=== PATIENT | male | born 1945 | race Caucasian/White ===

== ENCOUNTER 2016-06-30 19:53 | Inpatient (IN) | payer OTHER, MEDICARE ==
[~2016-06-30] VITALS: Ht 165.1 cm; Wt 53.8 kg
[2016-06-30] MEDS ORDERED: OLAN10TA3 PO (20:35)
[2016-06-30] MEDS ORDERED: TAMS-3 PO (20:35)
[2016-06-30] MEDS ORDERED: AMLO10TA2 PO (20:35)
[2016-06-30] MEDS ORDERED: ZOLP5TAB2 PO (20:35)
[2016-06-30] MEDS ORDERED: MAGN400O4 PO (20:35)
[2016-06-30] MEDS ORDERED: ACET-2154 PO (20:35)
[2016-06-30] MEDS ORDERED: PARO10TA26 PO (20:35)
[2016-06-30 22:15] LABS: *BILIRUBIN,URIN NEGATIVE (NEGATIVE); *BLOOD, URINE NEGATIVE (NEGATIVE); *CLARITY,URINE SLIGHTLY CLOUDY (CLEAR); *COLOR,URINE YELLOW (YELLOW); *KETONES,URINE 1+ (NEGATIVE); *PROTEIN,URINE TRACE (NEGATIVE); *UROBILINOGEN,URINE 0.2 E.U./dl (NORMAL); LEUKOCYTE ESTERASE ,URINE 2+ (NEGATIVE); PH,URINE 5.5 (5.0-8.0); UGLUCOSE NEGATIVE (NEGATIVE)
[2016-06-30 22:20] LABS: NITRITE, URINE POSITIVE (NEGATIVE)
[2016-06-30 22:22] LABS: BACTERIA,URINE MANY /HPF (NONE SEEN); RBC,URINE 0-3 /HPF (0-3); SQUAMOUS EPITHELIAL CELL,UR FEW /HPF (NONE SEEN); WBC,URINE 80-100 /HPF (0-3)
[2016-06-30 22:25] LABS: BASOPHILS % (AUTO) 0.5 % (0.0-2.0); EOSINOPHILS # (AUTO) 0.1 K/uL (0.0-0.7); EOSINOPHILS % (AUTO) 2.2 % (0.0-7.0); HEMATOCRIT 37.5 % (40-50); HEMOGLOBIN 12.3 G/DL (14.0-18.0); LYMPHOCYTES # (AUTO) 1.8 K/UL (0.8-4.8); LYMPHOCYTES % (AUTO) 32.2 % (20.5-51.5); MEAN CORPUSCULAR HGB CONC 33 g/dL (32.0-37.0); MEAN CORPUSCULAR VOLUME 94.6 FL (82.0-92.0); MONOCYTES # (AUTO) 0.4 K/UL (0.1-1.30); MONOCYTES % (AUTO) 7.1 % (0.0-11.0); NEUTROPHILS # (AUTO) 3.4 K/UL (1.8-8.9); PLATELET COUNT (AUTO) 163 K/UL (150-450); RED BLOOD CELL COUNT(AUTO) 3.97 MIL/UL (4.7-6.1); RED CELL DISTRIBUTION WIDTH 12.8 % (11.5-14.5); WHITE BLOOD COUNT (AUTO) 5.7 K/UL (4.0-11.2)
[2016-06-30] MEDS ORDERED: GENTAMICIN SULFATE INJ 80 MG in IV DEXTROSE 5% 100 ML IV ONE (22:30)
[2016-06-30] MEDS ORDERED: CEFTRIAXONE 1 G in IV DEXTROSE 5% 50 ML IV ONE (22:30)
[2016-06-30] MEDS ORDERED: IV NORMAL SALINE 1000 ML BAG IV ONE (22:30)
[2016-06-30 22:31] LABS: *AMPHETAMINE, URINE NEGATIVE (NEGATIVE); *BARBITURATE, URINE NEGATIVE (NEGATIVE); *CANNABINOID, URINE NEGATIVE (NEGATIVE); *COCCAINE, URINE NEGATIVE (NEGATIVE); *OPIATE, URINE NEGATIVE (NEGATIVE); *PHENCYCLIDINE SCREEN,URINE NEGATIVE (NEGATIVE)
[2016-06-30 22:37] LABS: CALCIUM 9.2 mg/dL (8.5-10.1); CARBON DIOXIDE 29 mmol/L (21-32); CHLORIDE 111 mmol/L (98-107); GFR 50 mL/min (>60); GLUCOSE 100 mg/dL (74-106); POTASSIUM 4.4 mmol/L (3.5-5.1); SODIUM SERUM 144 mmol/L (136-145); UREA NITROGEN, BLOOD 35 mg/dL (7-18)
[2016-06-30 22:39] LABS: CREATININE 1.4 mg/dL (0.6-1.3)
[2016-06-30 22:40] LABS: ETHANOL < 3 MG/DL (0-0)
[2016-06-30 22:42] LABS: ALANINE AMINOTRANSFERASE 41 U/L (16-63); ALBUMIN 3.4 g/dL (3.4-5.0); ALKALINE PHOSPHATASE 79 U/L (50-136); ASPARTATE AMINOTRANSFERASE 30 U/L (15-37); BILIRUBIN,TOTAL 0.3 mg/dL (0.2-1.0); TOTAL PROTEIN, SERUM 6.7 g/dL (6.4-8.2)
[2016-06-30 22:44] LABS: ACETAMINOPHEN < 2.0 ug/mL (10-30)
[2016-06-30 22:45] LABS: BILIRUBIN,DIRECT < 0.1 mg/dL (0.0-0.2)
[2016-06-30 22:46] LABS: AMMONIA 28 umol/L (11-32)
[2016-06-30] MEDS ORDERED: GENTAMICIN SULFATE 80 MG/2 ML VIAL ONE (23:04)
[2016-06-30] MEDS ORDERED: CEFTRIAXONE 1 G VIAL ONE (23:35)
[2016-06-30 23:55] LABS: THYROID STIMULATING HORMONE 0.685 mIU/mL (0.358-3.740)
[2016-07-01 01:17] VITALS: BP 102/62
[2016-07-01] MEDS ORDERED: ONDANSETRON 4 MG/2 ML VIAL IV PRN (01:45)
[2016-07-01 01:46] VITALS: BP 127/69
[2016-07-01] MEDS ORDERED: ZOLPIDEM 5 MG TABLET ONE (02:14)
[2016-07-01 04:00] VITALS: BP 94/53
[2016-07-01 06:55] LABS: BASOPHILS % (AUTO) 0.8 % (0.0-2.0); EOSINOPHILS # (AUTO) 0.2 K/uL (0.0-0.7); EOSINOPHILS % (AUTO) 2.8 % (0.0-7.0); HEMOGLOBIN 12.6 G/DL (14.0-18.0); LYMPHOCYTES # (AUTO) 2.4 K/UL (0.8-4.8); LYMPHOCYTES % (AUTO) 40.3 % (20.5-51.5); MEAN CORPUSCULAR HEMOGLOBIN 31.7 UUG (27.0-31.0); MEAN CORPUSCULAR HGB CONC 33 g/dL (32.0-37.0); MEAN CORPUSCULAR VOLUME 95.4 FL (82.0-92.0); MONOCYTES # (AUTO) 0.5 K/UL (0.1-1.30); MONOCYTES % (AUTO) 8.3 % (0.0-11.0); NEUTROPHILS # (AUTO) 2.9 K/UL (1.8-8.9); NEUTROPHILS % (AUTO) 47.8 % (38.5-71.5); PLATELET COUNT (AUTO) 157 K/UL (150-450); RED BLOOD CELL COUNT(AUTO) 3.98 MIL/UL (4.7-6.1); RED CELL DISTRIBUTION WIDTH 12.3 % (11.5-14.5)
[2016-07-01 07:26] LABS: THYROID STIMULATING HORMONE 1.169 mIU/mL (0.358-3.740)
[2016-07-01 07:37] LABS: BILIRUBIN,TOTAL 0.3 mg/dL (0.2-1.0); CALCIUM 8.6 mg/dL (8.5-10.1); CREATININE 1.2 mg/dL (0.6-1.3); MAGNESIUM 1.8 mg/dL (1.8-2.4); PHOSPHOROUS 3.2 mg/dL (2.5-4.9); POTASSIUM 4.4 mmol/L (3.5-5.1); TOTAL PROTEIN, SERUM 5.9 g/dL (6.4-8.2)
[2016-07-01] MEDS ORDERED: ACETAMINOPHEN 325 MG TABLET PO SCH (09:00)
[2016-07-01] MEDS: AMLODIPINE 10 MG TABLET PO SCH (09:00)
[2016-07-01] MEDS ORDERED: MAGNESIUM HYDROXIDE 30 ML LIQUID UDC PO PRN (09:00)
[2016-07-01] MEDS: PAROXETINE HCL 10 MG TABLET PO SCH (09:30)
[2016-07-01] MEDS: TAMSULOSIN HCL 0.4 MG CAP.SR.24H PO SCH ×2 (09:30→17:35)
[2016-07-01] MEDS: ACETAMINOPHEN 325 MG TABLET PO PRN ×2 (09:46→17:36)
[2016-07-01 12:00] VITALS: BP 97/57
[2016-07-01 16:13] VITALS: BP 106/56
[2016-07-01 19:00] VITALS: BP 101/59
[2016-07-01] MEDS: ZOLPIDEM 5 MG TABLET PO SCH (20:32)
[2016-07-02 04:00] VITALS: BP 104/62
[2016-07-02] MEDS: TAMSULOSIN HCL 0.4 MG CAP.SR.24H PO SCH ×2 (08:15→16:39)
[2016-07-02] MEDS: PAROXETINE HCL 10 MG TABLET PO SCH (08:15)
[2016-07-02] MEDS: AMLODIPINE 10 MG TABLET PO SCH (08:25)
[2016-07-02] MEDS ORDERED: IBUPROFEN 400 MG TABLET PO PRN (09:15)
[2016-07-02 11:03] VITALS: BP 107/63
[2016-07-02 15:06] VITALS: BP 100/56
[2016-07-02] MEDS ORDERED: CEFTRIAXONE 1 G VIAL IM SCH (17:45)
[2016-07-02] MEDS ORDERED: CEFTRIAXONE 1 G in IV DEXTROSE 5% 50 ML IV SCH (18:30)
[2016-07-02 20:00] VITALS: BP 108/66
[2016-07-02] MEDS: ZOLPIDEM 5 MG TABLET PO SCH (20:36)
[2016-07-02] MEDS ORDERED: OLANZAPINE 5 MG TABLET PO SCH (21:00)
[2016-07-03 04:24] VITALS: BP 105/58
[2016-07-03] MEDS ORDERED: Acetaminophen PO (07:19)
[2016-07-03] MEDS ORDERED: CEFT1VIA15 IV (07:19)
[2016-07-03] MEDS ORDERED: Paroxetine Hcl PO (07:19)
[2016-07-03] MEDS ORDERED: LACT10SO6 PO (07:19)
[2016-07-03] MEDS: TAMSULOSIN HCL 0.4 MG CAP.SR.24H PO SCH (08:26)
[2016-07-03] MEDS: AMLODIPINE 10 MG TABLET PO SCH (08:27)
[2016-07-03] MEDS ORDERED: PAROXETINE HCL 10 MG TABLET PO SCH (09:00)
[2016-07-03 11:03] VITALS: BP 136/74
== END 2016-07-03 13:58 | DRG 463 ==
LOC: ER 19:53 → TELE 07-01 00:42 → MED 07-01 00:57
PROVIDERS: ADMIT Internal Medicine; ATTEND Internal Medicine
DX: N39.0 Urinary tract infection, site not specified (principal); N17.0 Acute kidney failure with tubular necrosis; G93.49 Other encephalopathy; G20 Parkinson's disease; E44.1 Mild protein-calorie malnutrition; F31.9 Bipolar disorder, unspecified; I10 Essential (primary) hypertension; F20.9 Schizophrenia, unspecified; F17.210 Nicotine dependence, cigarettes, uncomplicated; N40.0 Benign prostatic hyperplasia without lower urinary tract symptoms; G24.01 Drug induced subacute dyskinesia; T43.505A Adverse effect of unspecified antipsychotics and neuroleptics, initial encounter; Y92.199 Unspecified place in other specified residential institution as the place of occurrence of the external cause; Z68.1 Body mass index [BMI] 19.9 or less, adult; D64.9 Anemia, unspecified; Z79.899 Other long term (current) drug therapy; M06.9 Rheumatoid arthritis, unspecified
CPT/HCPCS: 36415; 70030-TC; 70450; 71010; 80307; 82746; 83735; 84100; 84443; 85025; 85730; 93005; 93880; A4663; G0480-TC; G6040-TC; J0696; J1580; J7030; J7050; J7060

== ENCOUNTER 2017-01-30 20:14 | Inpatient (IN) | payer OTHER, MEDICARE ==
[~2017-01-30] VITALS: Ht 167.6 cm; Wt 58.1 kg
[~2017-01-30 20:14] MED LIST: ACET-2154 PO; AMLO10TA2 PO; Acetaminophen PO; CEFT1VIA15 IV; LACT10SO6 PO; MAGN400O6 PO; OLAN10TA3 PO; Paroxetine Hcl PO; TAMS-3 PO; ZOLP5TAB2 PO
--- NOTE | 2017-01-30 20:35 | NUR ---
Pt is received alert, responsive as he was sent by his facility to R/O UTI due to c/o bladder pain. His care continue as awaits MD orders.
[2017-01-30] MEDS ORDERED: PARO10TA86 PO (20:49)
[2017-01-30] MEDS ORDERED: LIDOCAINE 2% (UROJET) 10 ML JELLY MM ONE (21:00)
[2017-01-30 21:20] LABS: *BILIRUBIN,URIN NEGATIVE (NEGATIVE); *BLOOD, URINE NEGATIVE (NEGATIVE); *CLARITY,URINE CLEAR (CLEAR); *COLOR,URINE YELLOW (YELLOW); *KETONES,URINE NEGATIVE (NEGATIVE); *PROTEIN,URINE NEGATIVE (NEGATIVE); *UROBILINOGEN,URINE 0.2 E.U./dl (NORMAL); LEUKOCYTE ESTERASE ,URINE NEGATIVE (NEGATIVE); NITRITE, URINE NEGATIVE (NEGATIVE); UGLUCOSE NEGATIVE (NEGATIVE)
[2017-01-30 21:27] LABS: RBC,URINE 0-3 /HPF (0-3)
[2017-01-30 21:28] LABS: MUCUS,URINE FEW /LPF (0-FEW); WBC,URINE NONE SEEN /HPF (0-3)
[2017-01-30 21:45] LABS: BASOPHILS % (AUTO) 0.7 % (0.0-2.0); EOSINOPHILS # (AUTO) 0.3 K/uL (0.0-0.7); EOSINOPHILS % (AUTO) 3.7 % (0.0-7.0); HEMATOCRIT 41.6 % (36.7-47.1); HEMOGLOBIN 14.2 g/dL (12.5-16.3); LYMPHOCYTES # (AUTO) 2.3 K/uL (20.0-40.0); LYMPHOCYTES % (AUTO) 31.5 % (20.5-51.5); MEAN CORPUSCULAR HEMOGLOBIN 32.5 uug (23.8-33.4); MEAN CORPUSCULAR HGB CONC 34 g/dL (32.5-36.3); MEAN CORPUSCULAR VOLUME 94.9 fL (73.0-96.2); MONOCYTES # (AUTO) 0.6 K/uL (2.0-10.0); MONOCYTES % (AUTO) 8.9 % (0.0-11.0); NEUTROPHILS % (AUTO) 55.2 % (38.5-71.5); PLATELET COUNT (AUTO) 250 K/uL (152-348); RED BLOOD CELL COUNT(AUTO) 4.38 MIL/uL (4.06-5.63); WHITE BLOOD COUNT (AUTO) 7.2 K/uL (3.6-10.2)
[2017-01-30] MEDS ORDERED: HYDROCODONE/APAP 10-325 MG TABLET PO ONE (21:45)
[2017-01-30] MEDS ORDERED: ONDANSETRON IV *ER 4 MG/2 ML VIAL IV ONE (21:45)
[2017-01-30 21:54] LABS: CREATININE 1.3 mg/dL (0.6-1.3); POTASSIUM 4.4 mmol/L (3.5-5.1)
[2017-01-30] MEDS ORDERED: ONDANSETRON 4 MG/2 ML VIAL ONE (21:56)
[2017-01-30] MEDS ORDERED: HYDROCODONE/APAP 10-325 MG TABLET ONE (21:56)
[2017-01-30 22:06] LABS: BILIRUBIN,DIRECT 0.1 mg/dL (0.0-0.2); BILIRUBIN,TOTAL 0.2 mg/dL (0.2-1.0); TOTAL PROTEIN, SERUM 6.7 g/dL (6.4-8.2)
--- NOTE | 2017-01-30 22:07 | NUR ---
Pt remain alert, responsive as he is been Medicated as ordered as his care continue while awaits TEST results.
--- NOTE | 2017-01-30 22:23 | NUR ---
Call placed to [facility], Dr. Day will be paged.
--- NOTE | 2017-01-30 22:30 | NUR ---
Pt is noted alert, responsiveas new orders for pt to be admitted Med/surg , under the care off DR. Ayala with DX: off Intractable. Pt care continue.
--- NOTE | 2017-01-30 23:02 | NUR ---
Pt remain alert, responsive with call light in reach and fall precautions in place as report is given to the 2nd floor receiving nurse as pt is been admitted to room 203 MED/SURG. His care continue while monitor.
--- NOTE | 2017-01-30 23:20 | NUR ---
Pt is noted off the unit as he is been transported to 2nd floor room 203. His care continue.
[2017-01-30] MEDS ORDERED: MORPHINE SULFATE 2 MG/1 ML DISP.SYRIN IV PRN (23:30)
[2017-01-30] MEDS ORDERED: IV 1/2NS 1000 ML 1,000 ML IV PRN (23:30)
[2017-01-30] MEDS ORDERED: MAGNESIUM HYDROXIDE 30 ML LIQUID UDC PO PRN (23:30)
[2017-01-30] MEDS ORDERED: Medication Not On Formulary EA (Olanzapine (Zyprexa) 10 MG) PO SCH (23:30)
[2017-01-30] MEDS ORDERED: ONDANSETRON 4 MG/2 ML VIAL IV PRN (23:30)
--- NOTE | 2017-01-30 23:30 | NUR ---
PT RECEIVED FROM ED, VIA [facility]. ORIENTED TO ROOM. PT IS A/OX2. ABLE TO MAKE NEEDS KNOWN. V/S STABLE. IN NO ACUTE DISTRESS. NO C/O PAIN AT THIS TIME. PT DOES C/O OF HEADACHE. WILL ADMIN TYLENOL ORDERED. IV INTACT AND PATENT. ON RA, TOLERATING WELL. AFEBRILE. PT REQUEST SLEEPING MEDICATION, MD AWARE. SAFETY MEASURES IMPLEMENTED. CALL LIGHT WITHIN REACH.
--- NOTE | 2017-01-30 23:30 | NUR ---
PT REFUSES HEAD TO TOE ASSESSMENT AND CHANGE OF CLOTHES. UNABLE TO TAKE ADMITTING PHOTOS.
[2017-01-30 23:38] VITALS: BP 131/64
--- NOTE | 2017-01-31 | NUR ---
PT REFUSED IVF. IVF HELD. PT IN STABLE CONDITION. TOLERATING ORAL HYDRATION WELL
[2017-01-31] MEDS: TAMSULOSIN HCL 0.4 MG CAP.SR.24H PO SCH ×3 (00:12→20:40)
[2017-01-31] MEDS: ACETAMINOPHEN 325 MG TABLET PO PRN ×4 (00:12→20:41)
[2017-01-31] MEDS: ZOLPIDEM 5 MG TABLET PO SCH ×2 (00:12→20:40)
[2017-01-31] MEDS ORDERED: ACETAMINOPHEN 325 MG TABLET ONE (00:21)
[2017-01-31] MEDS ORDERED: ZOLPIDEM 5 MG TABLET ONE (00:21)
[2017-01-31] MEDS ORDERED: TAMSULOSIN HCL 0.4 MG CAP.SR.24H ONE (00:22)
[2017-01-31 04:54] VITALS: BP 137/65
--- NOTE | 2017-01-31 06:00 | NUR ---
END OF SHIFT NOTES. PT SLEPT INTERMITTENTLY THROUGHOUT SHIFT. IN STABLE CONDITION. CONT TO REFUSE IVF. PT NEEDS FREQUENT REORIENTATION THROUGHOUT SHIFT. ALL NEEDS ATTENDED. SAFETY MAINTAINED. CALL LIGHT WITHIN REACH.
[2017-01-31] MEDS: PANTOPRAZOLE SODIUM 40 MG TABLET.DR PO SCH (06:04)
--- NOTE | 2017-01-31 07:15 | NUR ---
PT WALKING IN HALLWAY ASKING FOR BREAKFAST. ASSISTED BACK TO ROOM. ADVISED BREAKFAST TIME. PT. REFUSING TO CHANGING HOSPITAL GOWN. PT ALSO REFUSING TO HAVE IV FLUIDS CONNECTED TO IV.CALL LIGHT IN REACH. WILL CONTINUE TO MONITOR.
[2017-01-31] MEDS ORDERED: HYDROCODONE/APAP 5-325MG TABLET PO PRN (08:00)
[2017-01-31] MEDS ORDERED: HYDROCODONE/APAP 10-325 MG TABLET PO PRN (08:15)
[2017-01-31] MEDS: AMLODIPINE 10 MG TABLET PO SCH (08:26)
[2017-01-31] MEDS: PAROXETINE HCL 10 MG TABLET PO SCH (11:02)
[2017-01-31 11:23] VITALS: BP 133/65
[2017-01-31 16:13] VITALS: BP 151/60
--- NOTE | 2017-01-31 17:50 | NUR ---
NO CHANGES NOTED THROUGHOUT SHIFT. MEDICATED FOR HEADACHE PAIN NEEDED. PT IN BED NO ACUTE DISTRESS. CALL LIGHT IN REACH.
[2017-01-31 17:54] LABS: BASOPHILS % (AUTO) 0.4 % (0.0-2.0); EOSINOPHILS # (AUTO) 0.1 K/uL (0.0-0.7); EOSINOPHILS % (AUTO) 1.2 % (0.0-7.0); HEMATOCRIT 44.7 % (36.7-47.1); HEMOGLOBIN 15.4 g/dL (12.5-16.3); LYMPHOCYTES # (AUTO) 1.8 K/uL (20.0-40.0); LYMPHOCYTES % (AUTO) 16.1 % (20.5-51.5); MEAN CORPUSCULAR HEMOGLOBIN 32.5 uug (23.8-33.4); MEAN CORPUSCULAR HGB CONC 35 g/dL (32.5-36.3); MEAN CORPUSCULAR VOLUME 94.3 fL (73.0-96.2); MONOCYTES # (AUTO) 0.7 K/uL (2.0-10.0); NEUTROPHILS # (AUTO) 8.4 K/uL (1.8-8.9); NEUTROPHILS % (AUTO) 76.3 % (38.5-71.5); PLATELET COUNT (AUTO) 248 K/uL (152-348); RED BLOOD CELL COUNT(AUTO) 4.74 MIL/uL (4.06-5.63)
[2017-01-31 18:17] LABS: THYROID STIMULATING HORMONE 1.971 mIU/mL (0.358-3.740)
[2017-01-31 18:38] LABS: BILIRUBIN,TOTAL 0.5 mg/dL (0.2-1.0); CREATININE 1.3 mg/dL (0.6-1.3); MAGNESIUM 1.9 mg/dL (1.8-2.4); PHOSPHOROUS 3.7 mg/dL (2.5-4.9); POTASSIUM 3.8 mmol/L (3.5-5.1); TOTAL PROTEIN, SERUM 7.4 g/dL (6.4-8.2)
[2017-01-31 20:15] VITALS: BP 149/79
[2017-01-31] MEDS: DOCUSATE SODIUM 100 MG CAPSULE PO SCH (20:39)
[2017-01-31] MEDS: OLANZAPINE 5 MG TABLET PO SCH (20:41)
[2017-02-01 04:53] VITALS: BP 97/42
[2017-02-01] MEDS: PANTOPRAZOLE SODIUM 40 MG TABLET.DR PO SCH (06:42)
[2017-02-01 08:00] VITALS: BP 111/43
[2017-02-01] MEDS: PAROXETINE HCL 10 MG TABLET PO SCH (08:31)
[2017-02-01] MEDS: AMLODIPINE 10 MG TABLET PO SCH (08:32)
[2017-02-01] MEDS: TAMSULOSIN HCL 0.4 MG CAP.SR.24H PO SCH ×2 (11:30→23:30)
--- NOTE | 2017-02-01 11:30 | NUR ---
PT IS IRRITABLE AND REFUSES MEDICATION AT THIS TIME. PT IS AWAKE AND STABLE AT THIS TIME.
[2017-02-01 11:53] VITALS: BP 104/53
--- NOTE | 2017-02-01 13:39 | NUR ---
THE FOLLOWING MEDICATION WAS PULLED FROM THE PYXIS AMBIEN 0021, TYLENOL 0021, FLOMAX 0022 DURING MOBILE APPLICATION TESTER
[2017-02-01 16:13] VITALS: BP 105/54
[2017-02-01] MEDS: ACETAMINOPHEN 325 MG TABLET PO PRN (16:55)
--- NOTE | 2017-02-01 18:12 | NUR ---
PT IS OBSERVED CALM,COOPERATIVE, READING HIS BOOK IN THE CHAIRS BY WHERE STAFF CLOCKS IN. PT IS COMPLIANT WITH MEDS, STABLE. PT WAS TAUGHT BREATHING TECHNIQUE TO HELP WITH PAIN MANAGEMENT PT DOESN'T VERBALIZE UNDERSTANDING OF TEACHING AND REQUESTS TYLENOL FOR PAIN. PT VERBALIZES PAIN 4/10. AFTER THE TYLENOL PT VERBALIZES 0/10.
--- NOTE | 2017-02-01 20:00 | NUR ---
NURSING CLINICAL NOTE: Pt refused to start new IV access, despite education and encouragement. Vernon Patel made aware
[2017-02-01 20:48] VITALS: BP 106/63
[2017-02-01] MEDS: DOCUSATE SODIUM 100 MG CAPSULE PO SCH (20:50)
[2017-02-01] MEDS: ZOLPIDEM 5 MG TABLET PO SCH (21:11)
[2017-02-01] MEDS: OLANZAPINE 5 MG TABLET PO SCH (21:12)
[2017-02-01] MEDS: EZETIMIBE 10 MG TABLET PO SCH (21:12)
[2017-02-01] MEDS: ATORVASTATIN 40 MG TABLET PO SCH (21:12)
[2017-02-01 22:00] VITALS: BP 106/63
[2017-02-02 04:00] VITALS: BP 126/61
[2017-02-02 05:00] VITALS: BP 126/61
[2017-02-02] MEDS: PANTOPRAZOLE SODIUM 40 MG TABLET.DR PO SCH (07:00)
--- NOTE | 2017-02-02 08:00 | NUR ---
AWAKE LART AND AWARE DENIES PAIN OR DISCOMFORTS AT THIS TIME.AMBULATORY AND DENIES C/O AT THIS TIME.
[2017-02-02] MEDS: PAROXETINE HCL 10 MG TABLET PO SCH (08:54)
[2017-02-02] MEDS: AMLODIPINE 10 MG TABLET PO SCH (08:54)
[2017-02-02 11:24] VITALS: BP 118/69
[2017-02-02] MEDS: TAMSULOSIN HCL 0.4 MG CAP.SR.24H PO SCH (12:27)
--- NOTE | 2017-02-02 14:47 | NUR ---
PATIENT SEEN AND EXAMINED BY DR BENAVIDES WITH ORDER TO DISCHARGE PATIENT BACK TO [facility] WILL MAKE CONTACT TO ENSURE THAT THEY WILL ACCEPT PATIENT.
[2017-02-02] MEDS ORDERED: TAMS-3 PO (14:50)
[2017-02-02] MEDS ORDERED: MULT1TAB73 PO (14:50)
[2017-02-02] MEDS ORDERED: EZET10TA13 PO (14:50)
[2017-02-02] MEDS ORDERED: MAGN400O6 PO (14:50)
[2017-02-02] MEDS ORDERED: ATOR40TA PO (14:50)
[2017-02-02] MEDS ORDERED: DOCU100C36 PO (14:50)
[2017-02-02] MEDS ORDERED: ACET325T53 PO (14:50)
[2017-02-02] MEDS ORDERED: FAMO-132 PO (14:50)
[2017-02-02] MEDS ORDERED: HYDR-3326 PO (14:50)
[2017-02-02 15:23] VITALS: BP 139/59
--- NOTE | 2017-02-02 16:03 | NUR ---
CALLED THE [facility] SPOKE WITH CARRIE AND SHE STATED THAT THEY DO NOT HAVE THIS PATIENTS INFO ON THEIR LIST STATED WILL TALK TO THE NURSING ACADEMIC COUNSELOR AND WILL HAVE HER TO RETURN CALL.INFORMED HER THAT DR BATISTA STATED THAT [facility] IS AWARE AND HAS ACCEPTED THE PATIENT BUT SHE SAID THAT THEY WILL CALL BACK.PATIENT AWARE
--- NOTE | 2017-02-02 16:26 | NUR ---
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
--- NOTE | 2017-02-02 17:00 | NUR ---
CALLED AND NOTIFIED DR BENAVIDES RE [facility] IS NOT ACCEPTING THE PATIENT YET AND HE STATED WILL CALL THEM AND WILL TAKE CARE OF THIS.
[2017-02-02 19:30] VITALS: BP 110/54
--- NOTE | 2017-02-02 19:43 | NUR ---
RN Notes; called [facility] to give report on the patient, no one answers the phone. voice massage left. will continue to follow up.
--- NOTE | 2017-02-02 20:40 | NUR ---
Report given to the nurse Dave . all questions answers. 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
[2017-02-02 21:00] VITALS: BP 110/54
[2017-02-02] MEDS: DOCUSATE SODIUM 100 MG CAPSULE PO SCH (21:00)
[2017-02-02] MEDS: ZOLPIDEM 5 MG TABLET PO SCH (21:00)
[2017-02-02] MEDS: OLANZAPINE 5 MG TABLET PO SCH (21:27)
[2017-02-02] MEDS: EZETIMIBE 10 MG TABLET PO SCH (21:27)
[2017-02-02] MEDS: ATORVASTATIN 40 MG TABLET PO SCH (21:27)
--- NOTE | 2017-02-02 22:54 | NUR ---
NURSING CLINICAL NOTE: pt is discharged to [address] [place] [address], in a stable condition, VSS. denies pain. no acute distress noted.
== END 2017-02-02 22:59 | DRG 54 ==
LOC: ER 20:17 → MED 23:20
PROVIDERS: ADMIT Internal Medicine; ATTEND Internal Medicine
DX: G44.201 Tension-type headache, unspecified, intractable (principal); N17.0 Acute kidney failure with tubular necrosis; M06.9 Rheumatoid arthritis, unspecified; F20.9 Schizophrenia, unspecified; N40.1 Benign prostatic hyperplasia with lower urinary tract symptoms; R35.0 Frequency of micturition; Z72.0 Tobacco use; F31.9 Bipolar disorder, unspecified; Z79.899 Other long term (current) drug therapy; E78.5 Hyperlipidemia, unspecified; G89.29 Other chronic pain; I10 Essential (primary) hypertension; M54.9 Dorsalgia, unspecified; R53.1 Weakness; M25.551 Pain in right hip; Z87.440 Personal history of urinary (tract) infections; F41.9 Anxiety disorder, unspecified
CPT/HCPCS: 36415; 70030-TC; 71010; 82306; 83605; 83735; 84100; 84443; 85025; 85730; 87040; 93005; A4663; J2405; J3490